=== PATIENT | female | born 1990 | race Caucasian/White ===

== ENCOUNTER 2020-09-25 16:30 | Emergency (ER) | payer BC, SELFPAY ==
[2020-09-25 16:48] VITALS: BP 149/89; PULSE 102; RESP 14; TEMP 37.1; O2SAT 99
--- NOTE | 2020-09-25 17:07 | ED.GENADULT ---
HPI - General Adult General Chief complaint: Wound/Laceration Stated complaint: cellulitis Time Seen by Provider: 09/25/20 16:58 Source: patient Mode of arrival: ambulatory Limitations: no limitations History of Present Illness HPI narrative: 30-year-old with no major medical problems here with complaints of rash around her left forearm started few days ago. She states had a tattoo done a week ago and started noticing some redness around the tattoo area which is spreading. She also complains of a rash around her right ankle. She denies any fever or chills. Patient states that she went to urgent care and was given Keflex yesterday. Onset (ago): day(s) (1) Location: upper extremity (Left forearm) and lower extremity (Right ankle) Severity: mild Exacerbating factors: none Associated symptoms: denies other symptoms Related Data Allergies Allergy/AdvReac Type Severity Reaction Status Date / Time morphine Allergy Rash Verified 09/25/20 17:15 Review of Systems Review of Systems: All systems reviewed & are unremarkable except as noted in HPI and below Constitutional: Constitutional: Reports no additional constitutional complaints Eyes: Eyes: Reports no additional eye complaints Cardiovascular: Cardiovascular: Reports no additional cardiovascular complaints Respiratory: Respiratory: Reports no additional respiratory complaints Gastrointestinal: Gastrointestinal: Reports no additional gastrointestinal complaints Musculoskeletal: Musculoskeletal: Reports no additional musculoskeletal complaints Integumentary/Breasts: Skin/Breast: Reports as per HPI Neurologic: Reports system reviewed and no additional complaints, except as documented Psychiatric: Psychiatric: Reports no additional psychiatric complaints Exam Narrative: Exam Narrative: GENERAL: Well-appearing, Obese , and in no acute distress. HEAD: Normocephalic, atraumatic. EYES: PERRLA and EOMI.. NECK: Supple. CHEST: Clear to auscultation. No respiratory distress. HEART: Regular rate and rhythm. No murmur heard. Normal peripheral pulses. EXTREMITIES: Normal range of motion. No edema. A fresh tattoo noted on the left forearm with surrounding erythema. No skin induration. There is eczematous rash around her right ankle. SKIN: Warm, dry, no rash. NEURO: No focal deficits. Alert and oriented x3. PSYCH: Normal mood and affect. Course Course Emergency Course: Inform patient this appears to be a local reaction with the tattoo does not appear to be infected. Advised her to closely watch for any infection. Meanwhile continue Keflex. Vital Signs Vital signs: Vital Signs Temperature 37.1 C 09/25/20 16:48 Pulse Rate 102 H 09/25/20 16:48 Respiratory Rate 14 09/25/20 16:48 Blood Pressure 149/89 H 09/25/20 16:48 Pulse Oximetry 99 09/25/20 16:48 Temperature 37.1 C 09/25/20 16:48 Pulse Rate 102 H 09/25/20 16:48 Respiratory Rate 14 09/25/20 16:48 Blood Pressure 149/89 H 09/25/20 16:48 Pulse Oximetry 99 09/25/20 16:48 Medical Decision Making Vital Signs Vital Signs: Vital Signs Temperature 37.1 C 09/25/20 16:48 Pulse Rate 102 H 09/25/20 16:48 Respiratory Rate 09/25/20 16:48 Blood Pressure 149/89 H 09/25/20 16:48 Pulse Oximetry 99 09/25/20 16:48 Temperature 37.1 C 09/25/20 16:48 Pulse Rate 102 H 09/25/20 16:48 Respiratory Rate 09/25/20 16:48 Blood Pressure 149/89 H 09/25/20 16:48 Pulse Oximetry 99 09/25/20 16:48 Discharge Plan Discharge Clinical Impression: Skin irritation due to topical agent Patient Disposition: Home, Self-Care Condition: Stable Instructions: Antibiotic Form, Dermatitis (ED) Additional Instructions: Continue home medication , watch for fever Follow-up/Referrals: PHYSICIAN NOT ON STAFF,NONSTAFF [Primary Care Provider] - Julio Quijano MD [Physician] - Time of Disposition: 17:16
== END 2020-09-25 17:26 | disposition home or self-care (01) ==
LOC: ANHED 17:18
PROVIDERS: Emergency Provider Family Medicine; PCP Physician Assistant
DX: L81.8 Other specified disorders of pigmentation (principal)
CPT/HCPCS: 99281

== ENCOUNTER 2022-11-23 13:16 | Emergency (ER) | payer BC, MEDICAID, SELFPAY ==
[2022-11-23 13:27] VITALS: BP 110/92; PULSE 104; RESP 18; TEMP 37; O2SAT 98
--- NOTE | 2022-11-23 13:51 | ED.SKABFB ---
HPI - Skin/Abscess/Foreign Bdy General Chief complaint: Skin/Abscess/Foreign Body Stated complaint: Upper Body Rash Time Seen by Provider: 11/23/22 13:20 Source: patient Mode of arrival: ambulatory Limitations: no limitations History of Present Illness HPI narrative: 32-year-old female presents to [facility] complaints of erythematous itchy rash to her face, neck and chest for the past 3 days. Patient has been taking [id number] Benadryl and applying [id number] hydrocortisone cream with little relief. Patient has shortness of breath, wheezing, trouble swallowing difficulty breathing. Patient denies new medications, new soaps or detergents. Patient is a nonsmoker. Patient denies recent travel. Patient reports that other family members do not have similar rash MD complaint: rash Onset (ago): day(s) (3) Location: face, neck and chest Relieving factors: none Exacerbating factors: none Context: none Associated symptoms: denies other symptoms Treatments prior to arrival: OTC topical medication and Benadryl Related Data Home Medications Medication Instructions Recorded Confirmed cetirizine 10 mg tablet (Zyrtec) 10 mg PO DAILY 09/25/20 09/25/20 citalopram 40 mg tablet 40 mg PO 09/25/20 ergocalciferol (vitamin D2) 1,250 1,250 mcg PO WEEKLY 09/25/20 09/25/20 mcg (50,000 unit) capsule Allergies Allergy/AdvReac Type Severity Reaction Status Date / Time morphine Allergy Rash Verified 09/25/20 17:15 Review of Systems Constitutional: Constitutional: Denies chills, Denies fatigue, Denies fever(s) and Denies weakness ENT: Denies vertigo, Denies dizziness, Denies epistaxis and Denies nasal congestion Cardiovascular: Cardiovascular: Denies chest pain and Denies rapid heart rate Respiratory: Respiratory: Denies cough, Denies dyspnea and Denies wheezing Gastrointestinal: Gastrointestinal: Denies diarrhea, Denies nausea and Denies vomiting Integumentary/Breasts: Skin/Breast: Denies pruritus, Denies erythema, Reports rash and Denies skin ulcer Neurologic: Denies dizziness and Denies headache(s) PMFSH Comments At time of signature, I agree with nursing past medical, surgical, social and family history. There is no relevant family history pertinent to the presenting complaint. Exam Const: General: healthy appearing and no acute distress Nutritional Appearance: well nourished Orientation/consciousness: patient oriented x3 Limitations: no limitations HENMT: Head: normal to inspection Mouth: Yes Normal oral and palatal mucosa present, Yes lip normal and Yes moist mucous membranes Throat: posterior oropharynx normal and uvula midline Eyes: Conjunctivae: conjunctivae normal Neck: Neck: normal visual inspection Resp: Effort & Inspection: normal respiratory effort and not labored Auscultation: clear to auscultation bilaterally, no crackles, no rales, no rhonchi and no wheezes Cardio: Rate: regular rate Rhythm: regular rhythm Heart sounds: no murmurs Skin: General skin exam: normal color Wounds: no wounds Other: Mild erythematous raised sandpaper type rash noted to face, neck and upper chest. No open wounds, surrounding erythema or signs of infection noted Neuro: General: patient oriented x3 Speech: normal speech Gait exam (Neuro): Normal gait present Psych: Affect: normal affect Attitude: cooperative Course Course Level of Care: Express Care Visit Vital Signs Vital signs: Vital Signs Temperature 37.0 C 11/23/22 13:27 Pulse Rate 104 H 11/23/22 13:27 Respiratory Rate 18 11/23/22 13:27 Blood Pressure 110/92 H 11/23/22 13:27 Pulse Oximetry 98 11/23/22 13:27 Oxygen Delivery Room Air 11/23/22 13:27 Temperature 37.0 C 11/23/22 13:27 Pulse Rate 104 H 11/23/22 13:27 Respiratory Rate 18 11/23/22 13:27 Blood Pressure 110/92 H 11/23/22 13:27 Pulse Oximetry 98 11/23/22 13:27 Oxygen Delivery Room Air 11/23/22 13:27 MDM - Skin/Abscess/Foreign Jessy MORENO
== END 2022-11-23 14:02 | disposition home or self-care (01) ==
PROVIDERS: Emergency Provider Nurse Practitioner Family
DX: R21 Rash and other nonspecific skin eruption (principal); E66.9 Obesity, unspecified; Z68.44 Body mass index [BMI] 60.0-69.9, adult
CPT/HCPCS: 99213; G0463

== ENCOUNTER 2023-01-21 10:50 | Emergency (ER) | payer OTHER, BC, MEDICAID, SELFPAY ==
[2023-01-21 11:00] VITALS: BP 135/111; PULSE 99; RESP 20; TEMP 36.6; O2SAT 100
[2023-01-21 12:35] VITALS: BP 159/85; PULSE 92; RESP 17; O2SAT 99
[2023-01-21 13:28] VITALS: BP 139/75; PULSE 89; RESP 17; O2SAT 99
[2023-01-21] MEDS: KETOROLAC (*BKC) 60 MG/2 ML VIAL IM (13:28)
[2023-01-21 13:35] LABS: Basophils Absolute Auto 0.1 K/mm3 (0.0-0.1); Basophils Percent Auto 0.6 % (0.2-1.2); Eosinophils Absolute Auto 0.4 K/mm3 (0-0.3); Eosinophils Percent Auto 3.3 % (0-4.4); Hematocrit 34.9 % (37.0-47.0); Hemoglobin 9.9 g/dL (12.0-15.0); Immature Granulocyte Absolute 0.11 K/mm3 (0.00-0.031); Lymphocytes Absolute Auto 3.39 K/mm3 (0.9-3.2); Lymphocytes Percent Auto 30.3 % (18.3-44.2); Mean Corpuscular HGB Conc 28.4 g/dl (32-36); Mean Corpuscular Volume 73.9 fl (80-100); Mean Platelet Volume 9.1 fl (7.4-10.4); Monocytes Absolute Auto 0.8 K/mm3 (0.1-0.6); Monocytes Percent Auto 6.7 % (2.6-8.5); Neutrophils Absolute Auto 6.5 K/mm3 (1.3-6.7); Neutrophils Percent Auto 58.1 % (45.5-73.1); Platelet Count Result 320 k/mm3 (150-375); Red Blood Count 4.72 M/mm3 (4.2-5.4); Red Cell Distribution Width 18.7 % (11.5-14.5); White Blood Count 11.2 K/mm3 (4.5-10.0)
[2023-01-21 13:46] LABS: Alanine Aminotransferase 16 U/L (6-35); Albumin Level 3.8 g/dL (3.5-5.1); Alkaline Phosphatase 117 U/L (38-126); Anion Gap 9 mmol/L (8-16); Aspartate Amino Transferase 17 U/L (14-36); Bilirubin,Total 0.5 mg/dL (0.2-1.3); Blood Urea Nitrogen 12 mg/dL (7-17); Calcium 8.9 mg/dL (8.4-10.2); Carbon Dioxide 26 mmol/L (22-30); Chloride 103 mmol/L (98-107); Estimated CRCL calculation 180 ml/min; Estimated Glomerular Filt Rate > 60; Glucose 100 mg/dL (65-110); Magnesium 1.9 mg/dL (1.6-2.3); Potassium 4.1 mmol/L (3.4-5.0); Sodium 138 mmol/L (137-145)
[2023-01-21 13:53] LABS: Hypochromasia 1+ (NORMAL); Platelet Estimate Adequate (Adequate)
[2023-01-21 13:54] LABS: Anisocytosis 1+ (NORMAL); Ovalocytes 1+ (NORMAL); Poikilocytosis 1+ (NORMAL); Schistocytes None Seen (NORMAL)
[2023-01-21 14:41] VITALS: BP 145/82; PULSE 90; RESP 17; O2SAT 98
--- NOTE | 2023-01-21 15:02 | ED.GENADULT ---
HPI - General Adult General Chief complaint: Recheck/Abnormal Lab/Rx Stated complaint: htn Time Seen by Provider: 01/21/23 12:38 History of Present Illness HPI narrative: Patient is a 32-year-old female who presents ER with elevated blood pressure reading. She was at work when she had been having headache since I checked her blood pressure. Is in the 180s so she came here. Patient reports she has been having sinus congestion has been taking sinus decongestants. No history of hypertension previously. No chest pain or chest pressure. No difficulty breathing. No change in vision or hearing. No lateralizing numbness or weakness. Related Data Home Medications Medication Instructions Recorded Confirmed cetirizine 10 mg tablet (Zyrtec) 10 mg PO DAILY 09/25/20 09/25/20 citalopram 40 mg tablet 40 mg PO 09/25/20 ergocalciferol (vitamin D2) 1,250 1,250 mcg PO WEEKLY 09/25/20 09/25/20 mcg (50,000 unit) capsule Allergies Allergy/AdvReac Type Severity Reaction Status Date / Time morphine Allergy Rash Verified 01/21/23 12:36 Review of Systems Review of Systems: All systems reviewed & are unremarkable except as noted in HPI and below Constitutional: Constitutional: Reports no additional constitutional complaints ENT: Reports system reviewed and no additional complaints, except as documented Cardiovascular: Cardiovascular: Reports no additional cardiovascular complaints Respiratory: Respiratory: Reports no additional respiratory complaints Neurologic: Reports system reviewed and no additional complaints, except as documented PMFSH Past Medical History Medical History (Updated 01/21/23 @ 19:14 by Everett Mccarty MD) Healthy female adult Surgical History Surgical History (Updated 01/21/23 @ 19:14 by Everett Mccarty MD) No history of previous surgery Exam Narrative: GENERAL: Well-appearing, well-nourished, and in no acute distress. HEAD: Normocephalic, atraumatic. ENT: Mucous membranes moist. CHEST: Clear to auscultation. No respiratory distress. HEART: Regular rate and rhythm. Normal peripheral pulses. EXTREMITIES: Normal range of motion. No edema. NEURO: Alert and oriented x3. PSYCH: Normal mood and affect. Course Course Emergency Course: Blood pressure normalized from the ER. Discharged home. Vital Signs Vital signs: Vital Signs Temperature 97.9 F 01/21/23 11:00 Pulse Rate 99 01/21/23 11:00 Respiratory Rate 20 01/21/23 11:00 Blood Pressure 135/111 H 01/21/23 11:00 Pulse Oximetry 100 01/21/23 11:00 Oxygen Delivery Room Air 01/21/23 11:00 Temperature 97.9 F 01/21/23 11:00 Pulse Rate 92 01/21/23 15:11 Respiratory Rate 16 01/21/23 15:11 Blood Pressure 133/84 01/21/23 15:11 Pulse Oximetry 97 01/21/23 15:11 Oxygen Delivery Room Air 01/21/23 11:00 Medical Decision Making Vital Signs Vital Signs: Vital Signs Temperature 97.9 F 01/21/23 11:00 Pulse Rate 99 01/21/23 11:00 Respiratory Rate 20 01/21/23 11:00 Blood Pressure 135/111 H 01/21/23 11:00 Pulse Oximetry 100 01/21/23 11:00 Oxygen Delivery Room Air 01/21/23 11:00 Temperature 97.9 F 01/21/23 11:00 Pulse Rate 92 01/21/23 15:11 Respiratory Rate 16 01/21/23 15:11 Blood Pressure 133/84 01/21/23 15:11 Pulse Oximetry 97 01/21/23 15:11 Oxygen Delivery Room Air 01/21/23 11:00 Lab Data 01/21/23 13:26 01/21/23 13:26 Labs: Lab Results 01/21/23 01/21/23 Range/Units 13:26 13:26 WBC 11.2 H (4.5-10.0) K/mm3 RBC 4.72 (4.2-5.4) M/mm3 Hgb 9.9 L (12.0-15.0) g/dL Hct 34.9 L (37.0-47.0) % MCV 73.9 L (80-100) fl MCH 21.0 L (26-34) pg MCHC 28.4 L (32-36) g/dl RDW 18.7 H (11.5-14.5) % Plt Count 320 (150-375) k/mm3 MPV 9.1 (7.4-10.4) fl Immature Gran % (Auto) 1.0 H (0-0.5) % Neut % (Auto) 58.1 (45.5-73.1) % Lymph % (Auto) 30.3 (18.3-44.2) % [place] % (Auto)
[2023-01-21 15:11] VITALS: BP 133/84; PULSE 92; RESP 16; O2SAT 97
== END 2023-01-21 15:13 | disposition home or self-care (01) ==
PROVIDERS: Emergency Provider Emergency Medicine
DX: R03.0 Elevated blood-pressure reading, without diagnosis of hypertension (principal)
CPT/HCPCS: 36415; 80053; 83735; 85025; 96372; 99283; J1885